=== PATIENT | female | born 1970 | race Caucasian/White ===

== ENCOUNTER 2018-11-27 06:34 | Day surgery (SDC) | payer BC, OTHER ==
--- NOTE | 2018-11-27 07:26 | PCM.PREANE ---
Preanesthetic Assessment - Anesthesia/Transfusion/Family Hx Anesthesia History: Prior Anesthesia Without Reaction Family History of Anesthesia Reaction: No Transfusion History: No Prior Transfusion(s) - Review of Systems General: No Symptoms Pulmonary: No Symptoms Cardiovascular: No Symptoms Gastrointestinal: No Symptoms Neurological: No Symptoms Other: Reports: None - Physical Assessment Height: 5 ft 8 in Weight: 98.43 kg ASA Class: 1 Mental Status: Alert & Oriented x3 Airway Class: Mallampati = 2 Dentition: Reports: Normal Dentition ROM/Head Extension: Full Lungs: Clear to Auscultation, Normal Respiratory Effort Cardiovascular: Regular Rate, Regular Rhythm - Lab Values: Laboratory Last Values Urine HCG, Qual NEGATIVE (NEGATIVE) 11/27/18 06:55 - Allergies Allergies/Adverse Reactions: Allergies Allergy/AdvReac Type Severity Reaction Status Date / Time No Known Allergies Allergy Verified 11/23/18 10:43 - Blood Blood Available: No - Anesthesia Plan Pre-Op Medication Ordered: None - Acknowledgements Anesthesia Type Planned: General Anesthesia Pt an Appropriate Candidate for the Planned Anesthesia: Yes Alternatives and Risks of Anesthesia Discussed w Pt/Guardian: Yes Pt/Guardian Understands and Agrees with Anesthesia Plan: Yes Additional Comments: PMH: thyroid replacement PLAN: tiva, minimal versed PreAnesthesia Questionnaire HEENT History: Reports: Other (See Below) Other HEENT History: wears glasses/contacts, has permanent dental retainer Respiratory History: Reports: Asthma Other Respiratory History: has "mild asthma"- rarely uses inhaler BILINGUAL MEDICAL ASSISTANT History: Reports: Neurological History: Reports: Seizure, Other (See Below) Other Neuro History: hx of febrile seizures as a child, hx of motion sickness Endocrine/Metabolic History: Reports: Hypothyroidism, Obesity/BMI 30+, Other ( See Below) Other Endocrine/Metabolic History: HX of Graves disease- had radiation Dermatologic History: Reports: Other (See Below) Other Dermatologic History: hx of Vitaligo - Past Surgical History HEENT Surgical History: Reports: Adenoidectomy, Tonsillectomy GI Surgical History: Reports: Colonoscopy - SUBSTANCE USE Smoking Status *Q: Never Smoker Recreational Drug Use History: No - HOME MEDS Home Medications: Home Meds Levothyroxine Sodium [Synthroid] 112 mcg PO DAILY 11/22/18 [History] - CURRENT (IN HOUSE) MEDS Current Meds: Current Medications Lactated Ringer's (Ringers, Lactated) 1,000 mls @ 125 mls/hr IV ASDIRECTED ELIDA Last Admin: 11/27/18 07:21 Dose: 125 mls/hr Sodium Chloride (Saline Flush) 10 ml FLUSH ASDIRECTED PRN PRN Reason: Keep Vein Open Sodium Chloride (Saline Flush) 2.5 ml FLUSH ASDIRECTED PRN PRN Reason: Keep Vein Open Sodium Chloride (Saline Flush) 10 ml FLUSH ASDIRECTED PRN PRN Reason: Keep Vein Open Sodium Chloride (Saline Flush) 2.5 ml FLUSH ASDIRECTED PRN PRN Reason: Keep Vein Open Sodium Chloride (Normal Saline) 10 ml IV ASDIRECTED PRN PRN Reason: IV Use
[2018-11-27] MEDS ORDERED: Propofol 200 MG/20 ML SDV ONE ×2 (07:51)
[2018-11-27] MEDS ORDERED: fentaNYL 100 MCG/2 ML SDV ONE (07:51)
[2018-11-27] MEDS ORDERED: Midazolam 1 MG/ML 2 ML SDV ONE (07:51)
[2018-11-27] MEDS ORDERED: Sodium Chloride 0.9% 10 ML SDV IV PRN (08:00)
[2018-11-27] MEDS ORDERED: Lactated Ringers 1,000 ML IV SCH (08:00)
[2018-11-27] MEDS ORDERED: Sodium Chloride 0.9% 2.5 ML Syringe FLUSH PRN ×2 (08:00)
[2018-11-27] MEDS ORDERED: Sodium Chloride 0.9% 10 ML Syringe FLUSH PRN ×2 (08:00)
--- NOTE | 2018-11-27 08:26 | PCM.OPNOTE ---
- General Post-Op/Procedure Note Date of Surgery/Procedure: 11/27/18 Operative Procedure(s): Screening colonoscopy Findings: Normal colonoscopy Pre Op Diagnosis: Colonoscopy Post-Op Diagnosis: same Anesthesia Technique: MAC Primary Surgeon: Kassidy Olivas Condition: Good
--- NOTE | 2018-11-27 08:46 | PCM.POSTAN ---
POST ANESTHESIA ASSESSMENT - MENTAL STATUS Mental Status: Alert, Oriented - VITAL SIGNS Vital Signs: Last Vital Signs Temp 97.9 F 11/27/18 07:24 Pulse 71 11/27/18 08:38 Resp 10 L 11/27/18 08:38 BP 101/62 11/27/18 08:38 Pulse Ox 96 11/27/18 08:38 - RESPIRATORY Respiratory Status: Respiratory Rate WNL, Airway Patent, O2 Saturation Stable - CARDIOVASCULAR CV Status: Pulse Rate WNL, Blood Pressure Stable - GASTROINTESTINAL GI Status: No Symptoms - POST OP HYDRATION Hydration Status: Adequate & Stable
--- NOTE | 2018-11-27 09:56 | PCM48HPAN ---
Post Anesthesia Note - EVALUATION WITHIN 48HRS OF ANESTHETIC Vital Signs in Normal Range: Yes Patient Participated in Evaluation: Yes Respiratory Function Stable: Yes Airway Patent: Yes Cardiovascular Function Stable: Yes Hydration Status Stable: Yes Pain Control Satisfactory: Yes Nausea and Vomiting Control Satisfactory: Yes Mental Status Recovered: Yes Vital Signs: Last Vital Signs Temp 97.9 F 11/27/18 07:24 Pulse 71 11/27/18 08:38 Resp 10 L 11/27/18 08:38 BP 101/62 11/27/18 08:38 Pulse Ox 96 11/27/18 08:38
--- NOTE | 2018-11-27 13:28 | OR ---
SURGEON: KASSIDY OLIVAS MD DATE OF PROCEDURE: 11/27/2018 PREOPERATIVE DIAGNOSIS: Screening colonoscopy. POSTOPERATIVE DIAGNOSIS: Screening colonoscopy. PROCEDURE PERFORMED: Screening colonoscopy. PRIMARY SURGEON: Kassidy Olivas MD. ANESTHESIA: MAC. INSTRUMENT USED: Olympus colonoscope. EXTENT OF EXAM: To the cecum. PREPARATION: Good. LIMITATIONS: None. INDICATIONS FOR EXAMINATION: The patient is a 47-year-old female with a family history of colon cancer. She has been getting 5-year colonoscopy since her 30s. She has a history of colon polyps. I explained the need for a repeat screening colonoscopy. I explained the procedure; expected perioperative course; and risks including bleeding, infection, or damage to surrounding structures including perforation. The patient verbalized understanding and wishes to proceed. PROCEDURE IN DETAIL: The patient was brought into the endoscopy suite and placed in the left lateral decubitus position. A time-out was completed verifying the patient's name, age, date of , allergies, and procedure to be performed. Monitored anesthesia care was induced and continuous oxygen was provided via nasal cannula throughout the procedure. After adequate sedation was achieved, a digital rectal exam was performed. This exam was within normal limits. A well-lubricated colonoscope was inserted in the rectum and advanced under direct visualization to the level of the cecum. The cecum was identified by both visual and anatomic landmarks. A photograph was taken of the cecal cap; however, I was unable to retroflex the scope within the cecum due to looping of the scope more proximally. The scope was then fully withdrawn while examining the color, texture, anatomy, and integrity of the mucosa from the cecum to the anal canal. The findings were consistent with normal colonic mucosa. The scope was then brought into the rectum and retroflexed to allow visualization of the anal canal opening. This appeared normal and a photograph was taken. The scope was then straightened out and fully withdrawn. The cecum to anus time was 7 minutes. The patient tolerated the procedure well and was transferred to the PACU in stable condition. ENDOSCOPIC DIAGNOSIS: Normal colonoscopy. RECOMMENDATIONS: Follow up in clinic in 5 years. EDWIN MINAYA /[id number]
== END 2018-11-27 09:15 | disposition home or self-care (01) ==
LOC: MW.SDS 06:34
PROVIDERS: ATTEND Surgery
DX: Z12.11 Encounter for screening for malignant neoplasm of colon (principal); E03.9 Hypothyroidism, unspecified; J45.909 Unspecified asthma, uncomplicated; E66.9 Obesity, unspecified; Z68.32 Body mass index [BMI] 32.0-32.9, adult; Z80.0 Family history of malignant neoplasm of digestive organs; Z86.010 Personal history of colon polyps; Z79.899 Other long term (current) drug therapy
CPT/HCPCS: 45378; 81025; J2704; J7120; J2250; J3010

== ENCOUNTER 2020-01-09 03:00 | Emergency (ER) | payer BC, OTHER ==
--- NOTE | 2020-01-09 03:34 | EDM.PDOC ---
ED HPI GENERAL MEDICAL PROBLEM - General Chief Complaint: Back Pain or Injury Stated Complaint: PER PT. SHE IS HAVING CHEST PAIN Time Seen by Provider: 01/09/20 03:15 - History of Present Illness INITIAL COMMENTS - FREE TEXT/NARRATIVE: 49-year-old female with history of Graves' disease on Synthroid and rarely has issues with back pain presenting with what was initially back pain and now is back pain radiating into the right chest. Patient denies a history of injury or trauma. She developed pain in the thoracic back just to the right of midline worsens when she lays flat 8 out of 10 when sitting upright is 5 out of 10. She saw a chiropractor today who felt like the pain was likely coming from her back he did a brief adjustment she did not have any sudden worsening of pain during the adjustment. However she has been alternating Tylenol and ibuprofen and the pain has become more intense it is primarily just to the right of the thoracic spine and radiates into the right shoulder and the right chest it worsens with d eep breaths. No cough or shortness of breath no fevers. No abdominal pain no nausea vomiting or diarrhea. No lower extremity weakness no urinary or bowel incontinence. back area Pain Score (Numeric/FACES): 7 - Related Data Allergies Allergy/AdvReac Type Severity Reaction Status Date / Time No Known Allergies Allergy Verified 01/09/20 03:18 Home Meds: Home Meds Levothyroxine Sodium [Synthroid] 112 mcg PO DAILY 11/22/18 [History] Liothyronine Sodium 5 mcg PO DAILY 11/27/18 [History] diazePAM [Valium.] 5 mg PO TID PRN 4 Days #12 tab 01/09/20 [Rx] Past Medical History HEENT History: Reports: Other (See Below) Other HEENT History: wears glasses/contacts, has permanent dental retainer Cardiovascular History: Reports: None Respiratory History: Reports: Asthma Other Respiratory History: has "mild asthma"- rarely uses inhaler Gastrointestinal History: Reports: None Genitourinary History: Reports: None CURRICULUM ASSISTANT PRINCIPAL History: Reports: Musculoskeletal History: Reports: None Neurological History: Reports: Seizure, Other (See Below) Other Neuro History: hx of febrile seizures as a child, hx of motion sickness Psychiatric History: Reports: None Endocrine/Metabolic History: Reports: Hypothyroidism, Obesity/BMI 30+, Other (See Below) Other Endocrine/Metabolic History: HX of Graves disease- had radiation Insulin Pump Model and Transformer Builder: None Hematologic History: Reports: None Immunologic History: Reports: None Oncologic (Cancer) History: Reports: None Dermatologic History: Reports: Other (See Below) Other Dermatologic History: hx of Vitaligo - Infectious Disease History Infectious Disease History: Reports: None - Past Surgical History Head Surgeries/Procedures: Reports: None HEENT Surgical History: Reports: Adenoidectomy, Tonsillectomy GI Surgical History: Reports: Colonoscopy Social & Family History - Tobacco Use Tobacco Use Status *Q: Never Tobacco User - Caffeine Use Caffeine Use: Reports: None - Recreational Drug Use Recreational Drug Use: No ED ROS GENERAL - Review of Systems Review Of Systems: See Below Free Text/Narrative/Comment: General: No fever. Skin: No rash. Eyes: No vision problems. ENT: No sore throat. Neck: No neck stiffness. Respiratory: No shortness of breath. Cardiac: Per HPI Gastrointestinal: No nausea, vomiting or abdominal pain. Urinary: No dysuria. Musculoskeletal: Per HPI Neurologic: No headache. ED EXAM, GENERAL - Physical Exam Exam: See Below Free Text/Narrative:: General Appearance: No acute distress, appears comfortable Skin: No rash HEENT: Normocephalic/atraumatic, sclera anicteric, mucous membranes moist Neck: Normal range of motion Chest and Lungs: Bilateral breath sounds, clear to auscultation Cardiovascular: Regular rate and rhythm, no murmur Abdomen: Soft, non-tender Back: Normal Musculoskeletal: No edema or tenderness Neurologic: Awake, alert, no obvious deficits, moving all extremities Psychiatric: Appropriate, cooperative #1 Interpretation EKG Date: 01/09/20 Time: 03:33 EKG Interpretation Comments: Normal sinus rhythm normal intervals and axis no acute ischemia Course - Vital Signs Last Recorded V/S: Last Vital Signs Temp 96.5 F L 01/09/20 03:05 Pulse 74 01/09/20 03:05 Resp 18 01/09/20 03:05 BP 118/73 01/09/20 03:05 Pulse Ox 98 01/09/20 03:05 - Orders/Labs/Meds Orders: Active Orders 24 hr Category Date Time Status EKG 12 Lead [EKG Documentation Completion] [RC] STAT Care 01/09/20 03:15 Active diazePAM [Valium] Med 01/09/20 05:13 Once 5 mg PO ONETIME ONE Labs: Laboratory Tests 01/09/20 01/09/20 01/09/20 Range/Units 03:30 03:40 03:40 WBC 10.27 (4.0-11.0) K/uL RBC 4.62 (4.30-5.90) M/uL Hgb 13.5 (12.0-16.0) g/dL Hct 41.1 (36.0-46.0) % MCV 89.0 (80.0-98.0) fL MCH 29.2 (27.0-32.0) pg MCHC 32.8 (31.0-37.0) g/dL RDW Std Deviation 43.7 (28.0-62.0) fl RDW Coeff of Tami 13 (11.0-15.0) % Plt Count 268 (150-400) K/uL MPV 10.30 (7.40-12.00) fL Neut % (Auto) 72.0 (48.0-80.0) % Lymph % (Auto) 16.8 (16.0-40.0) % [place] % (Auto) 9.7 (0.0-15.0) % Eos % (Auto) 1.3 (0.0-7.0) % Baso % (Auto) 0.2 (0.0-1.5) % Neut # (Auto) 7.4 H (1.4-5.7) K/uL Lymph # (Auto) 1.7 (0.6-2.4) K/uL [place] # (Auto) 1.0 H (0.0-0.8) K/uL Eos # (Auto) 0.1 (0.0-0.7) K/uL Baso # (Auto) 0.0 (0.0-0.1) K/uL Nucleated RBC % 0.0 /100WBC Nucleated RBCs # 0 K/uL D-Dimer, Quantitative (0.0-0.50) mg/L FEU Sodium 141 (136-145) mmol/L Potassium 4.0 (3.5-5.1) mmol/L Chloride 105 (98-107) mmol/L Carbon Dioxide 24.7 (21.0-32.0) mmol/L BUN 12 (7.0-18.0) mg/dL Creatinine 0.8 (0.6-1.0) mg/dL Est Cr Clr Drug Dosing 86.75 mL/min Estimated GFR (MDRD) > 60.0 ml/min Glucose 106 (74-106) mg/dL Calcium 8.4 L (8.5-10.1) mg/dL Total Bilirubin 0.4 (0.2-1.0) mg/dL AST 15 (15-37) IU/L ALT 20 (14-63) IU/L Alkaline Phosphatase 106 (46-116) U/L Troponin I < 0.050 (0.000-0.056) ng/mL Total Protein 7.0 (6.4-8.2) g/dL Albumin 3.8 (3.4-5.0) g/dL Globulin 3.2 (2.6-4.0) g/dL Albumin/Globulin Ratio 1.2 (0.9-1.6) Urine Color YELLOW Urine Appearance CLOUDY Urine pH 6.0 (5.0-8.0) Ur Specific [place] >= 1.030 (1.001-1.035) Urine Protein NEGATIVE (NEGATIVE) mg/dL Urine Glucose (UA) NEGATIVE (NEGATIVE) mg/dL Urine Ketones TRACE H (NEGATIVE) mg/dL Urine Occult Blood LARGE H (NEGATIVE) Urine Nitrite NEGATIVE (NEGATIVE) Urine Bilirubin NEGATIVE (NEGATIVE) Urine Urobilinogen 0.2 (<2.0) EU/dL Ur Leukocyte Esterase SMALL H (NEGATIVE) Urine RBC 4-7 (0-2/HPF) Urine WBC 30-35 (0-5/HPF) Ur Epithelial Cells MANY (NONE-FEW) Urine Bacteria 2+ H (NEGATIVE) Urine Mucus MODERATE (NONE-MOD) 01/09/20 Range/Units 03:40 WBC (4.0-11.0) K/uL RBC (4.30-5.90) M/uL Hgb (12.0-16.0) g/dL Hct (36.0-46.0) % MCV (80.0-98.0) fL MCH (27.0-32.0) pg MCHC (31.0-37.0) g/dL RDW Std Deviation (28.0-62.0) fl RDW Coeff of Tami (11.0-15.0) % Plt Count (150-400) K/uL MPV (7.40-12.00) fL Neut % (Auto) (48.0-80.0) % Lymph % (Auto) (16.0-40.0) % [place] % (Auto) (0.0-15.0) % Eos % (Auto) (0.0-7.0) % Baso % (Auto) (0.0-1.5) % Neut # (Auto) (1.4-5.7) K/uL Lymph # (Auto) (0.6-2.4) K/uL [place] # (Auto) (0.0-0.8) K/uL Eos # (Auto) (0.0-0.7) K/uL Baso # (Auto) (0.0-0.1) K/uL Nucleated RBC % /100WBC Nucleated RBCs # K/uL D-Dimer, Quantitative 0.26 (0.0-0.50) mg/L FEU Sodium (136-145) mmol/L Potassium (3.5-5.1) mmol/L Chloride (98-107) mmol/L Carbon Dioxide (21.0-32.0) mmol/L BUN (7.0-18.0) mg/dL Creatinine (0.6-1.0) mg/dL Est Cr Clr Drug Dosing mL/min Estimated GFR (MDRD) ml/min Glucose (74-106) mg/dL Calcium (8.5-10.1) mg/dL Total Bilirubin (0.2-1.0) mg/dL AST (15-37) IU/L ALT (14-63) IU/L Alkaline Phosphatase (46-116) U/L Troponin I (0.000-0.056) ng/mL Total Protein (6.4-8.2) g/dL Albumin (3.4-5.0) g/dL Globulin (2.6-4.0) g/dL Albumin/Globulin Ratio (0.9-1.6) Urine Color Urine Appearance Urine pH (5.0-8.0) Ur Specific [place] (1.001-1.035) Urine Protein (NEGATIVE) mg/dL Urine Glucose (UA) (NEGATIVE) mg/dL Urine Ketones (NEGATIVE) mg/dL Urine Occult Blood (NEGATIVE) Urine Nitrite (NEGATIVE) Urine Bilirubin (NEGATIVE) Urine Urobilinogen (<2.0) EU/dL Ur Leukocyte Esterase (NEGATIVE) Urine RBC (0-2/HPF) Urine WBC (0-5/HPF) Ur Epithelial Cells (NONE-FEW) Urine Bacteria (NEGATIVE) Urine Mucus (NONE-MOD) Departure - Departure Time of Disposition: 05:15 Disposition: Home, Self-Care 01 Condition: Good Clinical Impression: Musculoskeletal back pain - Discharge Information *PRESCRIPTION DRUG MONITORING PROGRAM REVIEWED*: Not Applicable *COPY OF PRESCRIPTION DRUG MONITORING REPORT IN PATIENT GRETCHEN: Not Applicable Prescriptions: diazePAM [Valium.] 5 mg PO TID PRN 4 Days #12 tab PRN Reason: muscle spasms Instructions: Acute Back Pain, Adult Referrals: PCP,None [Primary Care Provider] - Forms: ED Department Discharge Additional Instructions: I encourage you to alternate Tylenol and ibuprofen for pain. You had been given a 650 mg of Tylenol at 5:30 AM. I would plan to take 600 mg of ibuprofen or 3 [id number] tablets at around 9:30 AM. You would then take another dose of Tylenol at approximately 12:30 PM. You can use the Valium With muscle relaxation and muscle spasms. However it may make you sleepy its important you do not drive or operate machinery while you take it it is also important you do not combine it with alcohol. My hope and expectation is that the symptoms will improve over the next few days. I encourage you to follow-up with the primary care clinic and if your symptoms worsen or change in any way or new symptoms develop the concern you please return to the emergency department. The following information is given to patients seen in the emergency department who are being discharged to home. This information is to outline your options for follow-up care. We provide all patients seen in our emergency department with a follow-up referral. The need for follow-up, as well as the timing and circumstances, are variable depending upon the specifics of your emergency department visit. If you don't have a primary care physician on staff, we will provide you with a referral. We always advise you to contact your personal physician following an emergency department visit to inform them of the circumstance of the visit and for follow-up with them and/or the need for any referrals to a consulting specialist. The emergency department will also refer you to a specialist when appropriate. This referral assures that you have the opportunity for follow-up care with a specialist. All of these measure are taken in an effort to provide you with optimal care, which includes your follow-up. Under all circumstances we always encourage you to contact your private physician who remains a resource for coordinating your care. When calling for follow-up care, please make the office aware that this follow-up is from your recent emergency room visit. If for any reason you are refused follow-up, please contact the [facility] Emergency Department at and asked to speak to the emergency department charge nurse. Sepsis Event Note (ED) - Evaluation Sepsis Screening Result: No Definite Risk - Focused Exam Vital Signs: Vital Signs Temp Pulse Resp BP Pulse Ox 01/09/20 03:05 96.5 F L 74 18 118/73 98 - My Orders Last 24 Hours: My Active Orders 01/09/20 03:15 EKG 12 Lead [EKG Documentation Completion] [RC] STAT 01/09/20 05:13 diazePAM [Valium] 5 mg PO ONETIME ONE - Assessment/Plan Last 24 Hours: My Active Orders 01/09/20 03:15 EKG 12 Lead [EKG Documentation Completion] [RC] STAT 01/09/20 05:13 diazePAM [Valium] 5 mg PO ONETIME ONE Assessment:: 49-year-old female presenting with atraumatic back pain radiating into the right chest. This certainly could represent musculoskeletal back pain. However, other etiologies need to be considered as well. PE considered I think it is unlikely but D-dimer sent ACS felt very unlikely patient does have a history of palpitations and brief runs of SVT were found on a Holter monitor recently. However she has no history of coronary artery disease. The pain is not squeezing it does not worsen with exertion. EKG is without acute ischemia. Troponin pending given many hours of pain single troponin felt to be sufficient to rule out ND. Biliary pathology considered and relevant blood work is pending. Patient declines medication at this time we will continue to monitor and reassess. 0515: Patient's labs and imaging are normal. At this point we can exclude ND as well as pulmonary embolism there is no signs of pneumonia pneumothorax etc. At this point would tentatively diagnosed with musculoskeletal back pain we will give a dose of Valium and Tylenol here patient will follow up with the [facility]. We discussed alternating Tylenol and ibuprofen and using Valium at night for muscle relaxation.
[2020-01-09 04:36] LABS: BLOOD UREA NITROGEN,BUN 12 mg/dL (7.0-18.0); CARBON DIOXIDE,CO2 24.7 mmol/L (21.0-32.0); CHLORIDE,CL 105 mmol/L (98-107); GLUCOSE RANDOM 106 mg/dL (74-106); SODIUM,NA 141 mmol/L (136-145)
--- NOTE | 2020-01-09 05:03 | CR ---
INDICATION: Right-sided chest pain TECHNIQUE: Chest 2 views. COMPARISON: 08/14/2015 FINDINGS: Cardiovascular and mediastinum: Heart size is normal. Pulmonary vasculature is normal. Mediastinum is within normal limits. Lungs and pleural spaces: Lungs are clear. No pleural effusion. No pneumothorax. Bones and soft tissues: No acute findings. No rib fracture identified. IMPRESSION: No acute pulmonary process. Dictated by Jd Negrete MD @ Jan 09 2020 5:00AM Signed by Dr. Jd Negrete @ Jan 09 2020 5:02AM
[2020-01-09] MEDS ORDERED: Diazepam 2 MG Tab PO ONE (05:13)
[2020-01-09] MEDS ORDERED: Acetaminophen 325 MG Tab PO ONE (05:14)
[2020-01-09] MEDS ORDERED: Diazepam 5 MG Tab ONE (05:24)
== END 2020-01-09 05:35 | disposition home or self-care (01) ==
LOC: MW.ED 03:00
DX: M54.6 Pain in thoracic spine (principal); J45.909 Unspecified asthma, uncomplicated; E03.9 Hypothyroidism, unspecified; E66.9 Obesity, unspecified; Z68.32 Body mass index [BMI] 32.0-32.9, adult
CPT/HCPCS: 36415; 71046; 80053; 81001; 84484; 85025; 85379; 93005; 99285; A9270; 99283

== ENCOUNTER 2023-08-08 11:07 | Day surgery (SDC) | payer BC, OTHER ==
[~2023-08-08 11:07] MED LIST: Sodium Chloride 0.9% 10 ML Syringe FLUSH PRN; Sodium Chloride 0.9% 2.5 ML Syringe FLUSH PRN; Sodium Chloride 0.9% 20 ML SDV IV PRN; propofoL 50 ML ONE
[2023-08-08] MEDS: Lactated Ringers 1,000 ML IV SCH (11:37)
== END 2023-08-08 12:52 | disposition home or self-care (01) ==
LOC: MW.SDS 11:07
PROVIDERS: ATTEND Surgery
DX: R19.4 Change in bowel habit (principal); J45.20 Mild intermittent asthma, uncomplicated; E03.9 Hypothyroidism, unspecified; Z79.890 Hormone replacement therapy; Z79.899 Other long term (current) drug therapy
CPT/HCPCS: 45380; 81025; J2704; J7120; 00811